=== PATIENT | male | born 1970 | race Caucasian/White ===

== ENCOUNTER 2018-02-16 15:22 | Outpatient (CLI) | END 2018-02-16 15:23 | disposition home or self-care (01) | LOC: RHC-LAB 15:22 | PROVIDERS: ATTEND General Practice | DX: R73.9 Hyperglycemia, unspecified (principal) | CPT/HCPCS: 36415; 83037 ==

== ENCOUNTER 2018-02-28 12:56 | Outpatient (CLI) ==
[2018-02-28 16:09] VITALS: BMI 51.5
== END 2018-02-28 12:57 | disposition home or self-care (01) ==
LOC: LAB 12:56
PROVIDERS: ATTEND General Practice
DX: R31.9 Hematuria, unspecified (principal); B17.9 Acute viral hepatitis, unspecified; R74.8 Abnormal levels of other serum enzymes; E78.5 Hyperlipidemia, unspecified
CPT/HCPCS: 36415; 80074; 81001; 87086

== ENCOUNTER 2018-04-20 12:58 | Outpatient (CLI) | END 2018-04-20 12:59 | disposition home or self-care (01) | LOC: RHC-LAB 12:58 | PROVIDERS: ATTEND General Practice | DX: E78.5 Hyperlipidemia, unspecified (principal); R06.09 Other forms of dyspnea; R60.9 Edema, unspecified; Z68.43 Body mass index [BMI] 50.0-59.9, adult | CPT/HCPCS: 36415; 80053; 83036; 83525; 83880; 85025 ==

== ENCOUNTER 2018-04-23 12:11 | Outpatient (CLI) | END 2018-04-23 12:12 | disposition home or self-care (01) | LOC: RHC-LAB 12:11 | PROVIDERS: ATTEND General Practice | DX: D69.6 Thrombocytopenia, unspecified (principal) | CPT/HCPCS: 36415; 85025 ==

== ENCOUNTER 2018-06-01 12:30 | Outpatient (CLI) ==
--- NOTE | 2018-06-01 14:44 | DI ---
EXAM: Pelvis AP view, bilateral hips lateral views HISTORY: Hip pain. FINDINGS / IMPRESSION: There is bilateral hip osteoarthritis, mild on the right and moderate on the left. No fracture or dislocation is seen. Sacroiliac joints are within normal limits.
== END 2018-06-01 12:31 | disposition home or self-care (01) ==
LOC: RAD 12:30
PROVIDERS: ATTEND General Practice
DX: M25.552 Pain in left hip (principal)